=== PATIENT | male | born 1965 | race Caucasian/White ===

== ENCOUNTER 2018-01-03 10:43 | Inpatient (IN) ==
--- NOTE | 2018-01-02 16:40 | Discharge Summary ---
<Benton Shen - Last Filed: 01/03/18 11:50> Orders not resulted at time of discharge: Pending orders 01/03/18 01:00 XR hip complete RT [XR] Routine Hemoglobin and Hematocrit [HEME] Routine Date of Encounter: 01/03/18 - Discharge Diagnosis (1) Obesity (BMI 30.0-34.9) Priority: Secondary Status: Chronic (2) Osteoarthritis of right hip Priority: Primary Status: Chronic Qualifiers: Osteoarthritis type: unspecified Qualified Code(s): M16.11 - Unilateral primary osteoarthritis, right hip (3) Status post total hip replacement, right Priority: Primary Status: Acute (4) Asthma Priority: Secondary Status: Acute Qualifiers: Asthma severity: unspecified severity Asthma persistence: unspecified Asthma complication type: unspecified Qualified Code(s): J45.909 - Unspecified asthma, uncomplicated - Hospital Course Hospital course: Mr. Sorto is a 52 year old male - Time Spent with Patient Total time spent providing and/or coordinating discharge services: - Discharge Medications Home Medications: Meloxicam 15 mg PO DAILY #20 tablet 03/05/17 [Rx] Aspirin Enteric Coated [Aspirin EC] 325 mg PO BID 10 Days #20 tablet. [Rx] OxyCODONE Immed Rel [Roxicodone 5 MG] 5 mg PO Q6HR PRN 7 Days #28 tablet [Rx] Albuterol Sulfate [Albuterol Inhaler] 2 puff IH Q4HR PRN 01/03/18 [History] Allergies/Adverse Reactions: 3 Allergy/AdvReac Type Severity Reaction Status Date / Time No Known Allergies Allergy Verified 01/03/18 11:01 Primary care physician: Slim Machuca CNP - Patient Status Disposition: Home, Self-Care Condition: Good - Discharge Instructions Instructions: Total Hip Replacement (DC) Follow Up With: Slim Machuca CNP [Primary Care Provider] - Additional Instructions: Discharge Instructions: Total Hip Replacement Please call [facility] ([phone]), your Primary Care Physician, or report to the Emergency Room if you have any of the following symptoms: Nausea, vomiting, fever greater that 101.5, swelling, chest pain, shortness of breath, increased pain/redness/drainage/odor for your incision site, numbness/ tingling, or any other concerning symptoms. ACTIVITY:Weight-bearing as tolerated for 8 weeks with hip dislocation precautions that physical therapy taught you. You may progress as tolerated under the guidance of your physical therapist. You do not need to sleep with a pillow between your legs. You can also seep on the operative side or on your stomach. Incentive Spirometer 10 times an hour. MEDICATIONS: Upon discharge resume your home medications. Take all the medications as prescribed. Take a stool softener if taking narcotic pain medications. Stool softeners are only effective if you drink enough fluids. Drink 6-8 glass of water or fluids a day, unless this is not allowed for another health problem. Despite using stool softeners, if you haven't had a bowel movement in 3 days, please switch to a gentle laxative. Gentle laxatives are sold over the counter. You should have a bowel movement within 24 hours, if not call the office. You will be discharged from the hospital with a prescription for pain medication. You are encouraged to decrease the use of narcotic pain medication as tolerated. Should you require a refill, please call the office. [facility] prescribes narcotic pain medication for only 4-6 weeks after surgery. If you require pain medication beyond this time period, you may be referred to your Primary Care Physician or to the Pain Clinic for further evaluation. Plan ahead for refills on pain medication as many narcotics either need to be picked up at the office or mailed. It is best to call 48-72 hours in advance of needing a prescription refill so you don't run out of medication. To help control the post-operative pain, you may take NSAIDs (Aleve,Advil, Motrin, ibuprofen, naprosyn) or Tylenol as prescribed on the bottle in addition to the pain medication. ANTICOAGULATION (blood thinners): Continue your Aspirin, Lovenox or Coumadin as prescribed to help prevent a blood clot in the leg or in the lungs. As long as your incision remains dry and you tolerate the NSAIDs (Aleve, Advil, Motrin, Ibuprofen, Naprosyn), it is OK to use the NSAIDS while you are taking your anticoagulation medication. Should your incision start to drain, stop the NSAID and contact our office. Common symptoms of blood clot in the legs include: localized pain, swelling, calf tenderness, redness or discoloration of the skin. Blood clot in the lung symptoms include: shortness of breath, rapid pulse, sweating, and chest pain that worsens with deep breathing, coughing up blood, lightheadedness, feelings of anxiety. If you experience any of these symptoms notify your physician immediately, go to the emergency room, or if having trouble breathing, call 911. WOUND CARE: Leave the dressing on for 7 to 10days. You may change the dressing if it is saturated greater than 50%. Do not get the dressing wet at anytime. Wash your hands with antibacterial soap, rinse and dry prior to any wound care. If you have marco the visiting nurse or rehab facility can remove the stapes 10-14 days after surgery and place steri-strips across the wound. Leave the steri-strips in place until they fall off on their own. You may let water from the shower run on top of the steri-strips. If you do not have a visiting nurse or rehab facility, you will need to return to the office at 10-14 days for the marco to be removed. If you have itching or redness around the dressing call the office. FOLLOW-UP: Please follow up with your surgeon in the orthopedic clinic in 6 weeks from the day of surgery. If you have marco that need to be removed, you will need to come back to the office in 10-14 days from the day of surgery. <Rebecca Pryor E - Last Filed: 01/05/18 08:44> Orders not resulted at time of discharge: Pending orders 01/03/18 01:00 XR hip complete RT [XR] Routine Hemoglobin and Hematocrit [HEME] Routine Date of Encounter: 01/04/18 Time of Encounter: 12:45 - Discharge Diagnosis (1) Osteoarthritis of right hip Priority: Primary Status: Chronic Qualifiers: Osteoarthritis type: unspecified Qualified Code(s): M16.11 - Unilateral primary osteoarthritis, right hip (2) Status post total hip replacement, right Priority: Primary Status: Acute (3) Asthma Priority: Secondary Status: Acute Qualifiers: Asthma severity: unspecified severity Asthma persistence: unspecified Asthma complication type: unspecified Qualified Code(s): J45.909 - Unspecified asthma, uncomplicated (4) Obesity Priority: Secondary Status: Chronic Qualifiers: Obesity type: unspecified obesity type Obesity classification: unspecified obesity classification Serious obesity comorbidity presence: unspecified whether serious comorbidity present Qualified Code(s): E66.9 - Obesity, unspecified - Hospital Course Hospital course: Mr. Sorto is a 52 year old male postoperative day #1 status post right total hip replacement robotic performed on 01/03/[address] Shen. Patient seen at bedside. On exam patient resting comfortably in chair. Alert and oriented x 3. Incision is clean dry and intact with dressings intact. No calf tenderness bilaterally lower extremities. Neurovascularly intact bilateral extremities. Labwork and medications reviewed. Vital signs reviewed. Pain control: Adequate Participating in PT. PTs recommending outpatient therapy to which patient is agreeable. All questions and concerns addressed. Educated on use of incentive spirometer, ambulation, and hydration. Patient educated on post-operative restrictions and care. Addressed: see above. D/C plan: Home with outpatient therapy today - Time Spent with Patient Total time spent providing and/or coordinating discharge services: Date of admission: 01/03/18 Primary care physician: Slim Machuca CNP Anticipated date of discharge: 01/04/18 - Patient Status Functional capacity at discharge: uses cane/walker Overall status at discharge: patient is progressing back to baseline - Diet and Activity Activity: as per physical therapy Diet: advance to your usual diet
[2018-01-03] MEDS ORDERED: Albuterol 2.5 MG/3 ML NEBULIZER IH ONE (11:00)
[2018-01-03] MEDS ORDERED: CeFAZolin Syr 2,000MG/20 ML 2,000 MG/20 ML SYRINGE IVPB ONE (11:00)
[2018-01-03] MEDS ORDERED: Ringers Solution, Lactated 1,000 ML IVC SCH ×2 (11:00→15:20)
[2018-01-03] MEDS ORDERED: Albuterol 2.5 MG/3 ML NEBULIZER ONE (11:03)
--- NOTE | 2018-01-03 11:36 | History & Physical Report ---
Date of Encounter: 01/03/18 Time of Encounter: 11:35 24 Hour HP Update - Instructions Instructions: If the History and Physical is less than 30 days old and was completed prior to A.M. admission and or procedure and has NOT been updated on calendar day of procedure please complete this update prior to performing procedure. - Update Patient reports changes in Medical Condition: No Changes in examination, assessment, or condition: No Changes in Medication: No Preop tests/diagnostics Reviewed: Yes Surgery Remains Indicated: Yes Consent for Planned Operative Procedure(s) Verified: Yes - Pre-Operative Checklist Preoperative Checklist Indicated: No Prophylactic Antibiotic Ordered: Yes Is VTE Prophylaxis Indicated?: Yes
[2018-01-03] MEDS ORDERED: Ethanol\\Acetic Acid\\Na Ace\\Ben 1,000 ML IRRIG.SOLN IR ONE (11:47)
--- NOTE | 2018-01-03 11:52 | Anesthesia Evaluation PreOp ---
Date of Encounter: 01/03/18 Time of Encounter: 11:50 - Past History Planned Operation: Right THR Cardiac History: Denies any Significant Hx Pulmonary History: Asthma LENS BLOCKER History: Denies Any Significant HX Other Medical History: Other (OBESITY) Anesthesia History: No Prior Anesthetic Complications, Past Anesthesia Alcohol Use: none Drug use: none Medications and Allergies Meloxicam 15 mg PO DAILY #20 tablet 03/05/17 [Rx] Aspirin Enteric Coated [Aspirin EC] 325 mg PO BID 10 Days #20 tablet. [Rx] OxyCODONE Immed Rel [Roxicodone 5 MG] 5 mg PO Q6HR PRN 7 Days #28 tablet [Rx] Albuterol Sulfate [Albuterol Inhaler] 2 puff IH Q4HR PRN 01/03/18 [History] 3 Allergy/AdvReac Type Severity Reaction Status Date / Time No Known Allergies Allergy Verified 01/03/18 11:01 - Meds/Allergy Pre-op Review Medications Reviewed: Yes Allergies Reviewed: Yes Beta Blockers on Current Med List: No Anesthesia Results - Labs Laboratory Tests 04/16/17 12/28/17 12/28/17 13:00 11:40 11:40 Hgb 16.5 Hct 48.9 Plt Count 359 Sodium 135 L Potassium 4.5 Creatinine 1.12 Est GFR (Non-Af Amer) > 60 Glucose 93 Anesthesia Exam O2 Sat Height 1.78 m Weight 110.223 kg BMI 35 Vital Signs Temp Pulse Resp BP Pulse Ox 98.6 F 84 18 157/103 96 01/03/18 11:02 01/03/18 11:02 01/03/18 11:02 01/03/18 11:02 01/03/18 11:02 - HEENT Pupil (Motor): Pupils equal Mallampati: I Teeth: Normal Oral Opening: Greater than 3 - LENS BLOCKER LOC: Oriented - Cardiac Rhythm: Regular - Pulmonary Breath Sounds: bilateral Clear Respiratory Effort: Symmetrical Anesthesia Assess/Plan ASA Score: 2 Modified Rayray Scale for Level of Consciousness: Cooperative, oriented, and tranquil Anesthetic Plan: General Monitoring Plan: Standard Monitors Recovery Plan: PACU
[2018-01-03] MEDS ORDERED: *HR* Methadone 10 MG TABLET PO ONE ×2 (11:53→12:05)
[2018-01-03] MEDS ORDERED: Pregabalin 75 MG CAPSULE PO ONE (11:53)
[2018-01-03] MEDS ORDERED: *HR* Midazolam HCl 2 MG/2 ML VIAL ONE (11:54)
[2018-01-03] MEDS ORDERED: *HR* Propofol 200 MG/20 ML VIAL IVP ONE (11:54)
[2018-01-03] MEDS ORDERED: Lidocaine -MPF 2% 2 ML VIAL ONE (11:55)
[2018-01-03] MEDS ORDERED: *HR* Succinylcholine 200 MG/10 ML VIAL IVP ONE (11:57)
[2018-01-03] MEDS ORDERED: Pregabalin 75 MG CAPSULE ONE (12:05)
[2018-01-03] MEDS ORDERED: Lidocaine -MPF 4% 5 ML AMPUL ONE (12:11)
[2018-01-03] MEDS ORDERED: Acetaminophen IV 1,000 MG/100 ML INFUS..BTL ONE (12:13)
[2018-01-03] MEDS ORDERED: *HR* HYDROmorphone 2 MG/ML SYRINGE ONE (12:13)
[2018-01-03] MEDS ORDERED: Ondansetron 4 MG/2 ML VIAL ONE (12:49)
[2018-01-03] MEDS ORDERED: Dexamethasone 4 MG/ML VIAL ONE (12:49)
[2018-01-03] MEDS ORDERED: Ketorolac 30 MG/ML VIAL ONE (12:50)
[2018-01-03] MEDS ORDERED: *HR* Labetalol 100 MG/20 ML MDV IVP PRN (13:22)
[2018-01-03] MEDS ORDERED: *HR* Promethazine 25 MG/ML VIAL IVP PRN (13:22)
[2018-01-03] MEDS ORDERED: *HR* HYDROmorphone (PF) 1 MG/ML SYRINGE IVP PRN (13:22)
[2018-01-03] MEDS ORDERED: *HR* OxyCODONE Immed Rel 5 MG TABLET PO PRN (13:22)
--- NOTE | 2018-01-03 13:50 | Orthopedic Operative Note ---
Date of procedure: 01/03/18 Pre-op diagnosis: Right hip arthritis Post-op diagnosis: same Procedure: Procedure: Right Total Hip Replacment robotic-assisted Estimated blood loss: 300 cc Hardware: Metal and polyethylene replacement. Pearson DM Cup: 60 cup Femoral size 8 stem Head:8 head with Deisy Procedural Notes: Grade 4 arthritic changes femoral head acetabular socket, procedure performed with robotic assistance. Operative leg 9 mm shorter than nonoperative leg as measured by preoperative CT Operative procedure: The patient was brought to the operating room and placed on the operating room table. After general anesthesia was administered the patient was placed in the lateral decubitus position with the operative leg up. All pressure points were padded appropriately and the head was stabilized in the neutral position. The operative extremity was prepped and draped in the sterile surgical fashion patient received IV antibiotic prior to skin incision. 3 Steinmann pins were placed in the iliac crest 3 cm proximal to the anterior superior iliac spine this was for the robotic-assisted sensor. This was done through a small 2 cm incision. A standard posterior approach is made to the operative hip, the incision was made through the skin and subcutaneous tissue hemostasis was obtained with Bovie cautery. Using careful sharp dissection the fascia was identified and incised exposing the external rotators. The femoral checkpoint was placed leg length was measured at this time utilizing robotic assistance. The external rotators were released off the greater trochanter and tagged with # 2 FiberWire suture. The capsule was T'd open and the hip was brought into internal rotation. Patient noted to have grade 4 arthritic changes femoral head. The femoral neck cut was made at the appropriate level roughly 15 mm proximal to the lesser trochanter aced on preoperative templating. An anterior capsulotomy was performed for the anterior retractor. Soft tissues removed from the acetabulum. Patient noted to have grade 4 arthritic changes acetabulum. The acetabulum checkpoint was placed confirmed. The acetabulum was then mapped with robotic assistance. Based on the preoperative plan the acetabulum was reamed in one step with a 59 reamer. The 602 acetabulum was impacted with robotic assistance and 41 degrees of abduction and 20 degrees of anteversion. The hip was brought back in to internal rotation and prepared with the box toe cementer followed by the canal finder followed by the reaming process to a size 7/ 8 broaching process in 20 degrees anteversion. It was broached up to the appropriate size 8. Trial reduction revealed leg lengths close to normal. The femoral implant was impacted in place in 20 degrees of anteversion. Trial reduction found the hip to be stable with 8 head and Deisy. The trials were removed and the real implants were impacted in place. The hip was reduced, patient had robotic confirmed leg length of 4 mm longer than the contralateral side. The hip had excellent stability with forward flexion to 90 degrees adduction of 30 degrees and internal rotation of 60 degrees. The hip had no shuck. The hips after 2 minutes with a antibacterial solution. It was irrigated out with 2 L of pulse irrigation. The checkpoints were removed, Steinmann pins were removed. The hip was closed by the PA. The deep tissue was irrigated and closed deep with #1 PDS suture superficially with 0 PDS suture and skin was closed with Dermabond and zip tie. The patient was placed in a sterile dressing and abduction pillow. The patient was extubated and transferred to the recovery room in stable condition. Anesthesia: GETA Surgeon: Benton Shen Was there an physical laboratory assistant present: No Estimated blood loss (cc): 300 Condition: stable Disposition: PACU
[2018-01-03 14:45] LABS: Hematocrit 46.6 % (37.5-50.1); Hemoglobin 15.3 g/dL (12.9-16.9)
--- NOTE | 2018-01-03 14:51 | Anesthesia Evaluation Post Op ---
Date of Encounter: 01/03/18 Time of Encounter: 14:50 - Vital Signs Vital Signs: Vital Signs/O2 Sat, Most Current Temp Pulse Resp BP Pulse Ox 98.7 F 88 15 157/87 95 01/03/18 14:20 01/03/18 14:40 01/03/18 14:40 01/03/18 14:40 01/03/18 14:40 - Lungs Lungs: Clear Ascult./Percussion - Airway Airway: Non-obstructed - Cardiovascular Regular Rate - Mental Status Mental Status: Alert & Oriented, Answers Appropriately, Baseline Status - Pain Pain Scale: 8 (po pain meds given) Pain Scale used: Numeric (1 - 10) - Nausea Vomiting Nausea Vomiting: Not Present - Hydration Hydration: Ice chips, Has not voided - Discharge PostOp Status: Transfer Patient to floor
[2018-01-03] MEDS ORDERED: Ondansetron 4 MG/2 ML VIAL IVP PRN (15:20)
[2018-01-03] MEDS ORDERED: Sennosides 8.6 MG TABLET PO PRN (15:20)
[2018-01-03] MEDS ORDERED: Naloxone 0.4 MG/ML INJ IVP PRN (15:20)
[2018-01-03] MEDS ORDERED: Temazepam 15 MG CAPSULE PO PRN (15:20)
[2018-01-03] MEDS ORDERED: *HR* OxyCODONE/APAP 5/325 TABLET PO PRN (15:20)
[2018-01-03] MEDS ORDERED: MOM Conc 10 ML UD.LIQ PO PRN (15:20)
[2018-01-03] MEDS ORDERED: traMADol 50 MG TABLET PO PRN (15:20)
[2018-01-03] MEDS: *HR* Enoxaparin 30 MG/0.3 ML SYRINGE SQ SCH (18:00)
[2018-01-03] MEDS: Ascorbic Acid 500 MG TABLET PO SCH (18:00)
[2018-01-03] MEDS ORDERED: *HR* Enoxaparin 30 MG/0.3 ML SYRINGE SQ SCH (18:00)
[2018-01-04 01:45] LABS: Hematocrit 41.2 % (37.5-50.1)
[2018-01-04 01:49] LABS: Hemoglobin 13.7 g/dL (12.9-16.9)
[2018-01-04 02:05] LABS: BUN/Creatinine Ratio 14 (6-26); Blood Urea Nitrogen 17 mg/dL (6-20); Calcium 9.3 mg/dL (8.6-10.3); Carbon Dioxide 21 mEq/L (23-29); Chloride 100 mEq/L (98-107); Glucose 157 mg/dL (70-105); Osmolality,Calculated 277 (280-300); Potassium 4.7 mEq/L (3.5-5.1); Sodium 131 mEq/L (136-145); eGFR For Non-African Americans > 60 (> 60)
[2018-01-04] MEDS: *HR* Enoxaparin 30 MG/0.3 ML SYRINGE SQ SCH ×3 (05:25→16:41)
[2018-01-04] MEDS: *HR* OxyCODONE Immed Rel 5 MG TABLET PO PRN ×3 (05:25→16:30)
--- NOTE | 2018-01-04 06:48 | Orthopedics Progress Note ---
Date of Encounter: 01/04/18 Time of Encounter: 06:48 - Assessment and Plan (1) Obesity (BMI 30.0-34.9) Current Visit: Yes Status: Chronic (2) Osteoarthritis of right hip Current Visit: No Status: Chronic Qualifiers: Osteoarthritis type: unspecified Qualified Code(s): M16.11 - Unilateral primary osteoarthritis, right hip (3) Status post total hip replacement, right Current Visit: No Status: Acute (4) Asthma Current Visit: No Status: Acute Qualifiers: Asthma severity: unspecified severity Asthma persistence: unspecified Asthma complication type: unspecified Qualified Code(s): J45.909 - Unspecified asthma, uncomplicated Subjective Interval history: Patient was seen this morning doing well without complaints. Afebrile vital signs stable. Operative extremity: Neurovascularly intact Dressing clean dry and intact Calves nontender Assessment and plan: Continue with postoperative care Hematocrit 41 discharged today Objective Vital signs: Vital Signs Temp Pulse Resp BP Pulse Ox 01/04/18 03:42 98.7 F 81 16 125/80 94 01/03/18 23:39 98.2 F 81 16 135/80 97 01/03/18 20:41 17 94 01/03/18 19:41 98.2 F 95 16 116/80 94 01/03/18 18:06 98.6 F 97 12 134/86 95 01/03/18 16:30 98.5 F 91 12 117/80 93 01/03/18 15:50 98.7 F 85 12 133/84 91 01/03/18 15:05 98.2 F 88 12 126/83 94 01/03/18 14:50 99.1 F 87 16 124/96 95 01/03/18 14:40 88 15 157/87 95 01/03/18 14:30 84 15 135/94 94 01/03/18 14:20 98.7 F 78 14 134/88 98 01/03/18 12:27 86 16 144/100 96 01/03/18 11:25 18 157/103 96 01/03/18 11:02 98.6 F 84 18 157/103 96 Intake and Output 01/03/18 01/03/18 01/04/18 15:59 23:59 07:59 Intake Total 880 / 880 100 / 100 Output Total 300 / 300 400 / 400 350 / 350 Balance -300 / -300 480 / 480 -250 / -250 Intake: IV Fluids 100 / 100 100 / 100 Ancef 2,000 MG In 0.9 % Sodium 100 / 100 100 / 100 Chloride 100 ML @ 200 mls/hr IVPB Q8H REMY Rx#:[id number] Oral 780 / 780 Output: Urine 400 / 400 350 / 350 Estimated Blood Loss 300 / 300 Other: Meal Dinner Percent of Meal Consumed 100% # Voids 1 Weight 110.223 kg - Labs CBC & BMP: 01/04/18 01:25 01/04/18 01:25 Labs: Abnormal lab results Sodium 131 mEq/L (136-145) L 01/04/18 01:25 Carbon Dioxide 21 mEq/L (23-29) L 01/04/18 01:25 Glucose 157 mg/dL (70-105) H 01/04/18 01:25 Calculated Osmolality 277 (280-300) L 01/04/18 01:25 - VTE Documentation of Mechanical Device: Venous foot pump, device Consult Discharge Plan - Plan Referrals: Slim Machuca, CLASSIFIED ADVERTISING CLERK [Primary Care Provider] -
[2018-01-04] MEDS: Ascorbic Acid 500 MG TABLET PO SCH ×2 (08:43→16:30)
[2018-01-04] MEDS ORDERED: Multivit/Ca/Min/Fe/FA 1 TAB TABLET PO SCH (09:00)
[2018-01-04 15:48] VITALS: BP 128/71
== END 2018-01-04 16:58 | disposition home or self-care (01) | DRG 470 ==
LOC: SAMDAY 10:43 → 3NENU 15:19
PROVIDERS: ADMIT Orthopaedic Surgery; ATTEND Orthopaedic Surgery